=== PATIENT | male | born 1960 | race Caucasian/White ===

== ENCOUNTER 2016-10-04 14:20 | Observation (INO) | payer OTHER ==
--- NOTE | 2016-10-04 14:41 | UCPHY ---
H & P Patient Type: Established Smoking Status: Current some day smoker (1 pack per day) Time Seen by Provider: 10/04/16 14:31 HPI/ROS: CHIEF COMPLAINT: Myalgia, sore throat, cough. HISTORY OF PRESENT ILLNESS: The patient is a 56 year old male who presents with one week of productive cough, sore throat, fatigue, and myalgia. He admits recent nausea but has not vomited. He also notes increased dyspnea on exertion. He does not use oxygen at home. Room air saturation was 85% on arrival. He denies chest pain, palpitations, vomiting, diarrhea, urinary complaints, headache, lightheadedness. He has reported intermittent leave feeling hot versus cold; no known fever. REVIEW OF SYSTEMS: Aside from elements discussed in the HPI, a comprehensive 10-point review of systems was reviewed and is negative. PAST MEDICAL HISTORY: Neck/facial reconstructions, GERD, bipolar disorder. SOCIAL HISTORY: No alcohol use, everyday smoker. VITAL SIGNS: see nurse's notes. GENERAL: Well-developed, well-nourished, in no acute distress. HEENT: Atraumatic Eyes: 2mm, reactive. PERRL, EOMI, no conjunctival injection. Ears: TM clear bilaterally. Nose: No discharge. Mouth: Dry mucous membranes. Pharynx: no erythema, no exudates, no swelling, no abscess. Uvula is midline. NECK: Supple, no adenopathy, no meningismus, no tenderness. Negative Kernig's and Brudzinski's. LUNGS: Crackles at right base. No wheezes, rhonchi or rales. CARDIAC: Regular rate and rhythm, no rubs, murmurs or gallops. ABDOMEN: Inconsistent LLQ tenderness. No guarding or rebound. Bladder palpable almost to the umbilicus. Soft, bowel sounds normal. BACK: No CVA tenderness. EXTREMITIES: Normal, no edema, FROM. NEURO: Alert and oriented, grossly nonfocal. SKIN: Warm and dry, no rash. PSYCHIATRIC: Normal mentation, no agitation. Portions of this note were transcribed by a healthcare or medical. I personally performed a history, physical exam, medical decision making, and confirmed accuracy of information the transcribed note. (Rosario Denise) Constitutional: Initial Vital Signs Temperature (C) 37.3 C 10/04/16 14:26 Heart Rate 80 10/04/16 14:26 Respiratory Rate 16 10/04/16 14:26 Blood Pressure 107/66 10/04/16 14:26 O2 Sat (%) 85 L 10/04/16 14:26 O2 Delivery Mode Room Air Allergies/Adverse Reactions: No Known Allergies Allergy (Verified 10/04/16 14:34) Home Medications: Medication Instructions Recorded Amitriptyline HCl 07/18/11 Flexeril 07/18/11 Zantac 07/03/15 traMADOL 01/06/16 Citalopram 10/04/16 Medical Decision Making - Diagnostics Imaging: X-ray of the chest was obtained. I viewed the images myself on the PACS system. My interpretation of the images is: Perihilar fullness, no definitive pneumonia noted. The radiologist interpretation is pending at this time. I discussed the x-ray findings with the patient. (Rosario Denise) ED Course/Re-evaluation: An IV was established and labs ordered. Chest x-ray and EKG ordered. Flu swab ordered. 1L IV saline administered for hydration in addition to 3ml IH Albuterol. Patient's care assumed by Dr. Ericka Flores at 3:00 p.m., change of shift. (Rosario Denise) Other Provider: I assumed care of this patient from Dr. Rosario Denise at 3:00 p.m.. I reviewed his chest x-ray and do not appreciate an infiltrate. CBC is normal. Chemistries are normal with the exception of calcium which is low at 8. Influenza test is negative. I examined the patient at 4:30 p.m.. He has completed a DuoNeb. His breath sounds are distant with wheezing slightly worse on the right base. Oxygen was 95% on 4 L. oxygen was briefly discontinued and his saturations dropped down to 87%. He will receive an albuterol neb. He was re-examined after the albuterol neb treatment. He continues with wheezing. Dose of prednisone 60 mg orally is given. I suspect underlying COPD with recent bronchitis/exacerbation. He [facility] be [facility] to [facility]. Dr. Myrick is the accepting physician. (Ericka Flores) - Data Points Laboratory Results: Laboratory Results 10/04/16 15:00 10/04/16 15:00 01/11/17 01/11/17 15:15 15:00 WBC 5.44 10^3/uL (3.80-9.50) RBC 4.59 10^6/uL (4.40-6.38) Hgb 13.8 g/dL (13.7-17.5) Hct 40.7 % (40.0-51.0) MCV 88.7 fL (81.5-99.8) MCH 30.1 pg (27.9-34.1) MCHC 33.9 g/dL (32.4-36.7) RDW 14.0 % (11.5-15.2) Plt Count 247 10^3/uL (150-400) MPV 10.0 fL (8.7-11.7) Neut % (Auto) Not Reported Lymph % (Auto) Not Reported [place] % (Auto) Not Reported Eos % (Auto) Not Reported Baso % (Auto) Not Reported Nucleat RBC Rel Count 0.0 % (0.0-0.2) Absolute Neuts (auto) Not Reported Absolute Lymphs (auto) Not Reported Absolute Monos (auto) Not Reported Absolute Eos (auto) Not Reported Absolute Basos (auto) Not Reported Absolute Nucleated RBC 0.00 10^3/uL (0-0.01) Immature Gran % Not Reported Seg Neutrophils % 38 % Band Neutrophils % 13 % Lymphocytes % 37 % Monocytes % 11 % Basophils % 1 % Immature Gran # Not Reported Absolute Seg Neuts 2.1 K/MM3 (1.8-7) Absolute Band Neuts 0.7 K/MM3 (0-0.7) Absolute Lymphocytes 2.0 K/mm3 (1.0-4.8) Absolute Monocytes 0.6 K/mm3 (0-0.8) Absolute Basophils 0.1 K/mm3 (0-0.2) Atypical Lymphocytes 1+ H Toxic Vacuolation PRESENT H Platelet Estimate ADEQUATE (ADEQ) VBG Lactic Acid 0.8 mmol/L (0.7-2.1) Sodium 135 mEq/L (134-144) Potassium 4.2 mEq/L (3.5-5.2) Chloride 103 mEq/L (97-110) Carbon Dioxide 26 mEq/l (22-31) Anion Gap 6 mEq/L (8-16) BUN 16 mg/dL (7-23) Creatinine 1.1 mg/dL (0.7-1.3) Estimated GFR > 60 Glucose 98 mg/dL (70-100) Calcium 8.0 L mg/dL (8.5-10.4) Total Bilirubin 0.4 mg/dL (0.1-1.4) Conjugated Bilirubin 0.4 mg/dL (0.0-0.5) Unconjugated Bilirubin 0.0 mg/dL (0.0-1.1) AST 27 IU/L (17-59) ALT 29 IU/L (21-72) Alkaline Phosphatase 65 IU/L (38-126) Troponin I < 0.012 ng/mL (0-0.034) Total Protein 6.2 L g/dL (6.3-8.2) Albumin 3.0 L g/dL (3.5-5.0) Influenza Typ A,B (DFA) NEGATIVE FOR FLU (NEGATIVE) Medications Given: Discontinued Medications Albuterol/Ipratropium (Duoneb) 3 ml IH EDNOW ONE Stop: 10/04/16 14:50 Last Admin: 10/04/16 15:45 Dose: 3 ml Sodium Chloride (Ns) 1,000 mls @ 0 mls/hr IV ONCE ONE PRN Reason: Wide Open Stop: 10/04/16 14:50 Last Admin: 10/04/16 15:44 Dose: 1,000 mls Prednisone (Prednisone) 60 mg PO EDNOW ONE Stop: 10/04/16 17:20 Last Admin: 10/04/16 17:29 Dose: 60 mg Departure - Departure Disposition: [facility] Clinical Impression: Hypoxia, Bronchitis COPD (chronic obstructive pulmonary disease) Qualifiers: COPD type: unspecified COPD Qualifier Code: (J44.9) Chronic obstructive pulmonary disease, unspecified Condition: Fair - PQRS PQRS Measurement: Does not apply. (Ericka Flores) Report Scribed for: Rosario Denise Report Scribed by: lT Martínez Date of Report: 10/04/16 Time of Report: 14:33
[2016-10-04] MEDS ORDERED: IPRATROPIUM/ALBUTEROL 3 ML DEYVIAL IH ONE (14:49)
[2016-10-04] MEDS ORDERED: NS 1,000 ML IV ONE (14:49)
--- NOTE | 2016-10-04 15:19 | DX ---
PA and Lateral Chest Clinical Indications: Shortness or breath, cough and body ache x1 week in a 56-year-old male. Comparison: July 13, 2011. Findings: No focal pulmonary consolidation is seen. Minimal basilar opacities bilaterally suggest eit her atelectasis or scarring. Peribronchial thickening is noted. There is hyperexpansion seen with fla ttening of the hemidiaphragms noted. The heart size and pulmonary vascularity are normal. Pleural maynard rfaces and bony thorax are negative for acute abnormality. Postoperative changes are noted in the cer vical spine. Impression: 1. Query COPD/chronic bronchitis. 2. Suspect basilar atelectasis or scarring.
[2016-10-04 15:21] LABS: ADD MORPH? NO; FRAGMENT RBC FLAG 0 (0-99); HEMATOCRIT 40.7 % (40.0-51.0); HEMOGLOBIN 13.8 g/dL (13.7-17.5); LEFT SHIFT FLG 0 (0-99); LIPEMIA HEMOLYSIS FLAG 90 (0-99); MEAN CELL HEMOGLOBIN 30.1 pg (27.9-34.1); MEAN CELL HEMOGLOBIN CONCENTR. 33.9 g/dL (32.4-36.7); MEAN CELL VOLUME 88.7 fL (81.5-99.8); PLATELET CLUMPS FLAG 0 (0-99); PLATELET COUNT 247 10^3/uL (150-400); RED BLOOD CELL COUNT 4.59 10^6/uL (4.40-6.38)
[2016-10-04 15:25] LABS: ATYPICAL LYMPHOCYTE FLAG 240 (0-99)
[2016-10-04 15:27] LABS: ADD DIFF? YES; ADD SCAN? NO
[2016-10-04 15:37] LABS: ALANINE AMINOTRANSFERASE 29 IU/L (21-72); ALKALINE PHOSPHATASE 65 IU/L (38-126); ANION GAP 6 mEq/L (8-16); ASPARTATE AMINOTRANSFERASE 27 IU/L (17-59); BILIRUBIN,TOTAL 0.4 mg/dL (0.1-1.4); BILIRUBIN-CONJUGATED 0.4 mg/dL (0.0-0.5); CARBON DIOXIDE 26 mEq/l (22-31); CHLORIDE 103 mEq/L (97-110); CREATININE 1.1 mg/dL (0.7-1.3); GLOMERULAR FILTRATION RATE > 60; GLUCOSE 98 mg/dL (70-100); POTASSIUM 4.2 mEq/L (3.5-5.2); SODIUM 135 mEq/L (134-144); TOTAL PROTEIN 6.2 g/dL (6.3-8.2)
[2016-10-04 16:13] LABS: TROPONIN I < 0.012 ng/mL (0-0.034)
[2016-10-04 16:15] LABS: PLATELET ESTIMATE ADEQUATE (ADEQ)
[2016-10-04 16:16] LABS: TOXIC VACUOLIZATION PRESENT
--- NOTE | 2016-10-04 17:05 | CPEKG ---
Heart Rate: 83 RR Interval: 723 P-R Interval: 168 QRSD Interval: 92 QT Interval: 392 QTC Interval: 461 P Gower: 73 QRS Gower: 86 T Wave Gower: 35 EKG Severity - NORMAL ECG - EKG Impression: SINUS RHYTHM Electronically Signed By: Ericka Flores 04-Oct-2016 18:11:26
[2016-10-04] MEDS ORDERED: predniSONE 20 MG TAB PO ONE (17:19)
[2016-10-04] MEDS ORDERED: AZITHROMYCIN IV 500 MG in D5W 250 ML IV SCH (22:30)
[2016-10-04] MEDS ORDERED: AMITRIPTYLINE HCL 25 MG TAB PO SCH (22:30)
[2016-10-04] MEDS ORDERED: oxyCODONE IR 5 MG TAB PO PRN (22:35)
[2016-10-04] MEDS ORDERED: ONDANSETRON 4 MG/2 ML VIAL IVP PRN (22:35)
[2016-10-04] MEDS ORDERED: ONDANSETRON DISINTEGRATING 4 MG TAB PO PRN (22:35)
[2016-10-04] MEDS ORDERED: ALBUTEROL 3 ML DEYVIAL IH PRN (22:35)
[2016-10-04] MEDS ORDERED: ACETAMINOPHEN 325 MG TAB PO PRN (22:35)
--- NOTE | 2016-10-04 22:59 | GHP ---
[f rep st] HISTORY AND PHYSICAL DATE OF ADMISSION: 10/04/2016 CHIEF COMPLAINT: Shortness of breath. HISTORY OF PRESENT ILLNESS: This is a 56-year-old male with no real medical problems who presents wi th shortness of breath. This has been going on for a few days, associated with a cough. No chest pa in. He also notes that he has been wheezing. His is also sick. He is smoking about a pack a d ay. PAST MEDICAL/SURGICAL HISTORY: 1. Tobacco use. 2. Cervical fusion. MEDICATIONS: Please see medication reconciliation. ALLERGIES: None. FAMILY HISTORY: No emphysema. SOCIAL HISTORY: Smokes as above. He does not drink. REVIEW OF SYSTEMS: 10-point review of systems is conducted and is negative except per HPI. PHYSICAL EXAM: VITAL SIGNS: Blood pressure 107/66, heart rate 80, respiration rate 16, satting at 8 5% on room air, temperature is 37.3. GENERAL: The patient is a pleasant man who appears mildly dysp neic, otherwise in no acute distress. HEENT: Normocephalic, atraumatic. CARDIOVASCULAR: Regular r ate and rhythm. No murmurs, rubs, or gallops. PULMONARY: Prolonged expiratory phase. He has diffu se bilateral expiratory wheezes. He has mild rhonchi. ABDOMEN: Soft, nontender, nondistended. SKI N: No rash. : [place]. NEUROLOGIC: Alert and oriented x3. He is moving all extremities. PSYCHI ATRIC: Normal mood and affect. LABORATORY DATA: CBC is normal. Lactate is 0.8. Basic metabolic panel and LFTs are normal. He is negative for influenza. DATA: 1. I discussed this with Dr. Flores. Will plan to admit to med/surg. 2. I personally viewed and interpreted his EKG; this shows sinus rhythm. There was nothing acute. 3. I personally viewed and interpreted his chest x-ray; this shows possible chronic bronchitis. IMPRESSION AND PLAN: This is a 56-year-old man admitted with likely chronic obstructive pulmonary di sease exacerbation. 1. Chronic obstructive pulmonary disease exacerbation: Start him on nebulizers, prednisone, and dayday thromycin. He does not currently have a diagnosis of COPD; however, this is what I suspect based on his clinical picture. He is currently hypoxic, will place him on supplemental oxygen and follow him closely. 2. Acute hypoxic respiratory failure due to the above. 3. Tobacco use: Cessation has already been counseled. This should be reiterated. 4. Code Status is full. 5. Venous thromboembolism risk is low. /[id number]/MODL
[2016-10-05] MEDS: IPRATROPIUM/ALBUTEROL 3 ML DEYVIAL IH SCH ×2 (05:28→11:31)
[2016-10-05 06:07] LABS: % IMMATURE GRANULYOCYTES 0.5 % (0.0-1.1); ABSOLUTE IMMATURE GRANULOCYTES 0.02 10^3/uL (0.00-0.10); ADD DIFF? NO; ADD MORPH? NO; ADD SCAN? YES; FRAGMENT RBC FLAG 0 (0-99); HEMATOCRIT 38.5 % (40.0-51.0); LEFT SHIFT FLG 0 (0-99); LIPEMIA HEMOLYSIS FLAG 90 (0-99); MEAN CELL HEMOGLOBIN 30.1 pg (27.9-34.1); MEAN CELL HEMOGLOBIN CONCENTR. 33.8 g/dL (32.4-36.7); MEAN CELL VOLUME 89.1 fL (81.5-99.8); MEAN PLATELET VOLUME 10.5 fL (8.7-11.7); PLATELET CLUMPS FLAG 20 (0-99); PLATELET COUNT 226 10^3/uL (150-400); RED BLOOD CELL COUNT 4.32 10^6/uL (4.40-6.38)
[2016-10-05 06:19] LABS: ATYPICAL LYMPHOCYTE FLAG 300 (0-99)
[2016-10-05 06:21] LABS: ANION GAP 7 mEq/L (8-16); CARBON DIOXIDE 26 mEq/l (22-31); CHLORIDE 106 mEq/L (97-110); CREATININE 0.8 mg/dL (0.7-1.3); GLOMERULAR FILTRATION RATE > 60; GLUCOSE 133 mg/dL (70-100); POTASSIUM 4.8 mEq/L (3.5-5.2); SODIUM 139 mEq/L (134-144)
[2016-10-05 06:40] LABS: SCAN NEGATIVE
[2016-10-05] MEDS ORDERED: traMADol 50 MG TAB PO SCH (09:00)
[2016-10-05] MEDS ORDERED: predniSONE 20 MG TAB PO SCH (09:00)
[2016-10-05] MEDS ORDERED: CITALOPRAM 20 MG TAB PO SCH (09:00)
[2016-10-05] MEDS ORDERED: NON-FORMULARY NEW DRUG (Citalopram Hydrobromide [Celexa 10 Mg] 10 MG) PO SCH (09:00)
[2016-10-05] MEDS ORDERED: FAMOTIDINE 20 MG TAB PO SCH (09:00)
[2016-10-05] MEDS ORDERED: CYCLOBENZAPRINE 10 MG TAB PO SCH (09:00)
[2016-10-05] MEDS ORDERED: NON-FORMULARY NEW DRUG (Ranitidine Hcl [Ranitidine Hcl] 75 MG) PO SCH (09:00)
[2016-10-05 09:08] VITALS: BP 93/63; TEMP 97.6
[2016-10-05 10:49] VITALS: O2SAT 87
--- NOTE | 2016-10-05 11:20 | PDDCSUM ---
Discharge Summary Discharge Summary: DISCHARGE SUMMARY FOLLOW-UP ITEMS: Outpatient PFTs once clinically resolved DATE OF ADMISSION: 10/04/2016 DATE OF DISCHARGE: 10/05/2016 DISCHARGE DIAGNOSES: 1. Acute COPD exacerbation 2. Acute hypoxic respiratory failure CONSULTATIONS: None PROCEDURES / IMAGING: Chest x-ray demonstrates no focal infiltrate, EKG demonstrates normal sinus mechanism CHIEF COMPLAINT: Acute shortness of breath and cough SUBJECTIVE: Patient has intermittent coughing, shortness of breath has improved PHYSICAL EXAM ON DISCHARGE: SpO2 86% on room air, heart rate in the 60-80 range, systolic blood pressure 100 , satting well on 3 L nasal cannula, inspiratory crackles in the bilateral bases which partially clears with coughing, expiratory wheezing bronchial breath sounds have nearly resolved, heart rate is regular, no lower extremity edema LABS ON DISCHARGE: Creatinine 0.8, white blood cell count 3900, potassium 4.8, lactic acid within normal limits, liver panel unremarkable, troponin negative, flu DFA negative HOSPITAL COURSE BY PROBLEM: 1. Acute COPD exacerbation. Evidenced by cough, shortness of breath, SpO2 85% on room air on presentation, as well as a smoking history and suspected underlying undiagnosed COPD. Exacerbation was most likely secondary to a precipitating URI, and he will receive a total of 5 days of steroids, 5 days of azithromycin, as needed albuterol inhaler, cough relief with Tessalon Perles. He did have an elevated D-dimer and this elicited a CT angiogram which demonstrated no evidence of pulmonary embolism. The patient should follow up with his primary care provider and have pulmonary function tests performed after clinical resolution. 2. Acute hypoxic respiratory failure. Evidenced by an SpO2 of 85% on room air on presentation with a respiratory rate of 20 and symptomatic shortness of breath as well as visibly labored breathing. Most likely cause was his acute COPD exacerbation. He was placed on 3-5 L supplemental oxygen, and reassessed prior to discharge. His SpO2 was 86% on room air and this is equivalent to a PaO2 of less than 55. He will require supplemental oxygen at home and this has been ordered prior to discharge. DISCHARGE MEDICATIONS: Please see official discharge medication reconciliation sheet in chart , azithromycin 500 mg x4 days, prednisone 40 mg once daily x4 days, albuterol inhaler as needed, Tessalon Perles as needed. DISCHARGE INSTRUCTIONS: Patient received smoking cessation counseling and we recommended the patient completely discontinue smoking while he is on supplemental oxygen, receive further smoking cessation coaching through his primary care provider office.
[2016-10-05 11:44] VITALS: PULSE 75; RESP 18
[2016-10-05] MEDS ORDERED: AMITRIPTYLINE HCL 50 MG TAB PO SCH (21:00)
== END 2016-10-05 16:01 | disposition home or self-care (01) ==
LOC: CED 14:20 → UNDOADMOB 17:18 → CEDHOLD 17:18 → F1N 19:11
PROVIDERS: ADMIT Student in an Organized Health Care Education/Training Program; ATTEND Student in an Organized Health Care Education/Training Program
DX: J44.1 Chronic obstructive pulmonary disease with (acute) exacerbation (principal); J96.01 Acute respiratory failure with hypoxia; F17.210 Nicotine dependence, cigarettes, uncomplicated; K21.9 Gastro-esophageal reflux disease without esophagitis; F31.9 Bipolar disorder, unspecified; Z98.1 Arthrodesis status
CPT/HCPCS: 71020; 93005; 96360; 99214; G0378; 80048-PO; 80076-PO; 83605-PO; 84484-PO; 85025-PO; 87400-PO; G0463-PO; J0456

== ENCOUNTER → 2017-04-06 | Outpatient (CLI) | payer OTHER, MEDICAID ==
[~2017-04-06] MED LIST: GADOBUTROL 10 ML VIAL IVP ONE
== END ==
LOC: FIMAGING 06:59
PROVIDERS: ATTEND Psychiatry & Neurology Neurology
DX: R20.2 Paresthesia of skin (principal); M79.652 Pain in left thigh
CPT/HCPCS: A9585

== ENCOUNTER 2019-03-16 22:32 | Emergency (ER) | payer OTHER, MEDICAID ==
[2019-03-16 22:41] VITALS: BP 133/99
[2019-03-16] MEDS ORDERED: traMADol 50 MG TAB PO ONE ×2 (22:52→22:54)
--- NOTE | 2019-03-16 22:57 | EDPHY ---
H & P Time Seen by Provider: 03/16/19 22:38 HPI/ROS: CHIEF COMPLAINT: Out of my tramadol. HISTORY OF PRESENT ILLNESS: This is a 58-year-old gentleman who has been on tramadol for chronic neck pain for the last 7 years. Patient reports that every month he sees Dr. Gauri Franco at [facility] and he gets a prescription for 30 days worth of tramadol. Approximately 1 month ago he had shoulder surgery performed at [facility]. Following that surgery the patient was given oxycodone which she used for about 2 weeks. He states that he lost track of the date that he needed another tramadol prescription and he has been on tramadol for the last 4 days. He called [facility]'s pharmacy and they are unable to provide tramadol for him this evening. He he reports that he will see Dr. Franco tomorrow to obtain his typical 30 day prescription. For the last several days he has had intermittent shaking and feeling poorly with jerking of his arm. He believes this is related to withdrawal from his tramadol. He has had no abdominal pain, nausea, vomiting, or diarrhea. Reports his right shoulder pain is mild. He has a PT appointment tomorrow. REVIEW OF SYSTEMS: A comprehensive 10 system review of systems was reviewed and is otherwise negative aside from elements mentioned in the history of present illness and medical decision making. PAST MEDICAL HISTORY: Chronic neck pain, gastritis, recent shoulder surgery. SOCIAL HISTORY: Heavy smoker. Here with his family. VITAL SIGNS: see nurse's notes. GENERAL: Well-developed, well-nourished, in no acute distress. Right upper extremity is in a sling with an ABduction pillow HEENT: Normal, no discharge or icterus, moist mucous membranes. No nystagmus. Neck: supple, FROM. LUNGS: Clear to auscultation bilaterally, no wheezes, rhonchi or rales. CARDIAC: Regular rate and rhythm, no rubs, murmurs or gallops. ABDOMEN: Soft, nontender, nondistended, bowel sounds normal. BACK: No CVA tenderness. No vertebral tenderness. EXTREMITIES: Well-healing surgical scar over the right shoulder with no signs of infection. Slightly tender to palpation. NEURO: Alert and oriented, grossly nonfocal. SKIN: Warm and dry, no rash. No diaphoresis. No piloerection. Smoking Status: Heavy smoker Constitutional: Initial Vital Signs Temperature (C) 36.7 C 03/16/19 22:39 Heart Rate 96 03/16/19 22:39 Respiratory Rate 18 03/16/19 22:39 Blood Pressure 133/99 H 03/16/19 22:39 O2 Sat (%) 93 03/16/19 22:39 O2 Delivery Mode Room Air Allergies/Adverse Reactions: Sulfa (Sulfonamide Antibiotics) Allergy (Verified 03/16/19 22:41) Home Medications: Medication Instructions Recorded Acetaminophen [Tylenol 325mg (*)] 650 mg PO Q4HRS PRN #0 tab 10/05/16 Albuterol [Proventil Inhaler HFA 2 puffs IH Q4 PRN #1 mdi 10/05/16 (*)] Amitriptyline HCl [Elavil 50 mg 50 mg PO HS 10/05/16 (*)] Citalopram Hydrobromide [celeXA 10 10 mg PO DAILY 10/05/16 MG] Cyclobenzaprine [Flexeril 10 MG 10 mg PO BID 10/05/16 (*)] Ranitidine HCl 75 mg PO BID 10/05/16 predniSONE 40 mg PO DAILY #8 tablet 10/05/16 traMADol [Ultram 50 mg (*)] 100 mg PO TID 10/05/16 Tramadol HCl 50 mg PO Q4 PRN #10 tablet 03/16/19 MDM/Departure - MDM Medications Given: Discontinued Medications Tramadol HCl (Ultram) 50 mg PO EDNOW ONE Stop: 03/16/19 22:53 Last Admin: 03/16/19 22:54 Dose: Not Given Tramadol HCl (Ultram) 100 mg PO EDNOW ONE Stop: 03/16/19 22:55 Last Admin: 03/16/19 22:57 Dose: 100 mg ED Course/Re-evaluation: [place] prescription drug monitoring program records were access. Reports generated are consistent with the patient's history. He does indeed receive a 30 day supply of tramadol every month. He received oxycodone at the end of January for his shoulder surgery. Last prescription for tramadol was filled on February 14 480 tablets. I did discuss with the patient the fact that he has early depleted by several days. We also discussed at length the fact that 7 years of tramadol for shoulder pain is something that he should have we consider being weaned off of. I will provide the patient with a dose of tramadol tonight. He was given a prescription of 10 tramadol tablets to take until he was able to be seen by Dr. Franco and receive his usual 30 day supply. He understands that no further tramadol will be provided from this emergency department. Differential Diagnosis: Differential diagnoses for the patient's symptom complex was considered including but not limited to medication refill, medication noncompliance, drug- seeking behavior, opiate withdrawal. - Depart Disposition: Home, Routine, Self-Care Clinical Impression: Medication refill Condition: Good Instructions: Tramadol (By mouth) Additional Instructions: You been given a prescription for 10 tablets of tramadol. No further tramadol will be provided from the emergency department. Please follow up with Dr. Franco tomorrow as per your usual to obtain your 30 day prescription for tramadol. Prescriptions: Tramadol HCl 50 mg PO Q4 PRN #10 tablet PRN Reason: pain Referrals: Gauri Franco [Non Staff and Non MD] - As per Instructions
== END 2019-03-16 23:09 | disposition home or self-care (01) ==
LOC: CED 22:32
DX: Z76.0 Encounter for issue of repeat prescription (principal); M54.2 Cervicalgia
CPT/HCPCS: 99283-ER